=== PATIENT | female | born 1985 | race Caucasian/White ===

== ENCOUNTER 2020-02-01 10:28 | Emergency (ER) | payer SELFPAY ==
--- NOTE | 2020-02-01 11:17 | RAD REPORT ---
EXAM DESCRIPTION: RAD - Hand Right 3 View - 02/01/2020 11:11 am CLINICAL HISTORY: lasceration to right finger;Pain COMPARISON: No comparisons FINDINGS: Soft tissue swelling affects the third finger. No fracture, dislocation or foreign body.
--- NOTE | 2020-02-01 11:57 | ER ---
Nurse's Notes [facility] Name: Yoselin Fish Age: 34 yrs Sex: Female : 1985 Arrival Date: 02/01/2020 Time: 10:32 Bed 7 Private MD: Milad Little V Diagnosis: Laceration to volar aspect of right middle finger at the distal phalanx Presentation: 01/31 10:35 Chief complaint: Patient states: laceration to R third finger sustained by glass 1 hour ss ago. Coronavirus screen: Patient denies fever greater than 100.4F, cough, shortness of breath, or difficulty breathing. Proceed with normal triage process. Ebola Screen: Patient denies exposure to infectious person. Patient denies travel to an Ebola-affected area in the 21 days before illness onset. Initial Sepsis Screen: Does the patient meet any 2 criteria? No. Patient's initial sepsis screen is negative. Does the patient have a suspected source of infection? No. Patient's initial sepsis screen is negative. Risk Assessment: Do you want to hurt yourself or someone else? Patient reports no desire to harm self or others. 10:35 Method Of Arrival: Ambulatory ss 10:35 Acuity: TIESHA 4 ss Historical: - Allergies: 10:36 No Known Allergies; ss - Home Meds: 10:36 None [Active]; ss - PMHx: 10:36 None; ss - PSHx: 10:36 None; ss - Immunization history:: Adult Immunizations up to date. - Social history:: Smoking status: Patient denies any tobacco usage or history of. Screenin:02 Abuse screen: Denies threats or abuse. Denies injuries from another. Nutritional hb screening: No deficits noted. Tuberculosis screening: No symptoms or risk factors identified. Fall Risk None identified. Assessment: 10:55 General: Appears in no apparent distress. Behavior is calm, cooperative. Pain: Pain hb currently is 3 out of 10 on a pain scale. Neuro: Level of Consciousness is awake, alert, obeys commands, Oriented to person, place, time, situation. Cardiovascular: Capillary refill < 3 seconds Patient's skin is warm and dry. Respiratory: Airway is patent Respiratory effort is even, unlabored, Respiratory pattern is regular, symmetrical. GI: No signs and/or symptoms were reported involving the gastrointestinal system. : No signs and/or symptoms were reported regarding the genitourinary system. EENT: No signs and/or symptoms were reported regarding the EENT system. Derm: Skin is pink, warm \T\ dry. Musculoskeletal: No signs and/or symptoms reported regarding the musculoskeletal system. 10:56 Injury Description: Laceration sustained to palmar aspect of distal phalanx of left hb middle finger is jagged, 0.5 to 2.5 cm long, a small amount of bleeding noted at this time. 11:30 Reassessment: Patient appears in no apparent distress at this time. Patient and/or hb family updated on plan of care and expected duration. Pain level reassessed. Patient is alert, oriented x 3, equal unlabored respirations, skin warm/dry/pink. 12:04 Reassessment: Patient appears in no apparent distress at this time. Patient and/or hb family updated on plan of care and expected duration. Pain level reassessed. Patient is alert, oriented x 3, equal unlabored respirations, skin warm/dry/pink. Vital Signs: 10:35 BP 132 / 91; Pulse 89; Resp 14; Temp 98.5(TE); Pulse Ox 96% on R/A; Weight 99.79 kg; ss Height 5 ft. 9 in. (175.26 cm); Pain 6/10; 11:40 BP 123 / 85; Pulse 77; Resp 16; Temp 97.6(TE); Pulse Ox 96% on R/A; mh5 10:35 Body Mass Index 32.49 (99.79 kg, 175.26 cm) ED Course: 10:32 Patient arrived in ED. am2 10:32 Milad Little MD is Private Physician. am2 10:36 Triage completed. ss 10:36 Arm band placed on left wrist. ss 10:36 Pulse ox on. NIBP on. mh5 10:39 Ophelia Kitchen, CATRACHITA is Primary Nurse. hb 10:39 Omar Coleman MD is Attending Physician. kdr 11:02 Patient has correct armband on for positive identification. Bed in low position. Call hb light in reach. 11:13 Hand Right 3 View XRAY In Process Unspecified. EDMS 11:53 Milad Little MD is Referral Physician. kdr 12:05 No provider procedures requiring assistance completed. Patient did not have IV access hb during this emergency room visit. Administered Medications: No medications were administered Outcome: 11:56 Discharge ordered by . anyi 12:05 Discharged to home ambulatory. hb 12:05 Condition: stable 12:05 Discharge instructions given to patient, Instructed on discharge instructions, follow up and referral plans. medication usage, wound care, Demonstrated understanding of instructions, follow-up care, medications, wound care, Prescriptions given X 1. 12:05 Patient left the ED. hb Signatures: Dispatcher [employer] EDMS Omar Coleman MD MD kdr Smirch, Shelby, RN RN Ophelia Kitchen RN RN Brittnee Hui 5 Osorio, Desiree 2
--- NOTE | 2020-02-01 11:57 | EDPHYS ---
Physician Documentation [facility] Name: Yoselin Fish Age: 34 yrs Sex: Female : 1985 Arrival Date: 02/01/2020 Time: 10:32 Bed 7 Private MD: Milad Little V ED Physician Omar Coleman HPI: 01/31 12:30 This 34 yrs old Female presents to ER via Ambulatory with complaints of kdr Finger Injury. 12:30 The patient or guardian reports an abrasion, decreased range of motion, injury, pain, kdr tenderness. The complaints affect the DIP of right middle finger. Context: Glass tray dropped and shattered into small fragments. Onset: The symptoms/episode began/occurred acutely, just prior to arrival. Modifying factors: The symptoms are alleviated by nothing, the symptoms are aggravated by nothing. 15:58 Associated signs and symptoms: The patient has no apparent associated signs or kdr symptoms. Severity of symptoms: At their worst the symptoms were very mild, in the emergency department the symptoms are unchanged. The patient has not experienced similar symptoms in the past. The patient has not recently seen a physician. Historical: - Allergies: 10:36 No Known Allergies; ss - Home Meds: 10:36 None [Active]; ss - PMHx: 10:36 None; ss - PSHx: 10:36 None; ss - Immunization history:: Adult Immunizations up to date. - Social history:: Smoking status: Patient denies any tobacco usage or history of. ROS: 15:58 Skin: Positive for laceration(s), of the palmar aspect of distal phalanx of right kdr middle finger. 15:59 Constitutional: Negative for fever, chills, and weight loss. kdr Exam: 15:58 Constitutional: This is a well developed, well nourished patient who is awake, alert, kdr and in no acute distress. 15:58 Musculoskeletal/extremity: Pulses: are normal with no appreciated deficits, Perfusion: the extremity is pink, warm, Sensation intact. Joints: All joints appear normal with full range of motion. Vital Signs: 10:35 BP 132 / 91; Pulse 89; Resp 14; Temp 98.5(TE); Pulse Ox 96% on R/A; Weight 99.79 kg; ss Height 5 ft. 9 in. (175.26 cm); Pain 6/10; 11:40 BP 123 / 85; Pulse 77; Resp 16; Temp 97.6(TE); Pulse Ox 96% on R/A; mh5 10:35 Body Mass Index 32.49 (99.79 kg, 175.26 cm) MDM: 11:56 Patient medically screened. kdr 15:58 Data reviewed: vital signs, nurses notes. Counseling: I had a detailed discussion with kdr the patient and/or guardian regarding: the historical points, exam findings, and any diagnostic results supporting the discharge/admit diagnosis, radiology results, the need for outpatient follow up. 01/31 10:50 Order name: Hand Right 3 View XRAY; Complete Time: 11:53 ma2 01/31 10:52 Order name: Misc. Order: Clean and dress wound, steri strip, finger splint; Complete ma2 Time: 11:38 Administered Medications: No medications were administered Disposition: 02/01/20 11:56 Discharged to Home. Impression: Laceration to volar aspect of right middle finger at the distal phalanx. - Condition is Stable. - Discharge Instructions: Laceration Care, Adult, [id number]. - Prescriptions for Ibuprofen 600 mg Oral Tablet - take 1 tablet by ORAL route every 6 hours As needed take with food; 30 tablet. - Medication Reconciliation Form, Thank You Letter form. - Follow up: Milad Little MD; When: 2 - 3 days; Reason: If symptoms return, Further diagnostic work-up, Recheck today's complaints, Continuance of care, Re-evaluation by your physician. - Problem is new. - Symptoms have improved. Signatures: Dispatcher [employer] EDMS Omar Coleman MD MD [facility] Amber Hughes RN RN Ophelia Kitchen RN RN Florence Zaman MD MD ma2 Corrections: (The following items were deleted from the chart) 12:05 11:56 02/01/2020 11:56 Discharged to Home. Impression: Laceration to volar aspect of hb right middle finger at the distal phalanx. Condition is Stable. Forms are Medication Reconciliation Form, Thank You Letter, Antibiotic Education, Prescription Opioid Use. Follow up: Milad Little; When: 2 - 3 days; Reason: If symptoms return, Further diagnostic work-up, Recheck today's complaints, Continuance of care, Re-evaluation by your physician. Problem is new. Symptoms have improved. kdr
[2020-02-01 12:21] VITALS: O2SAT 96
[2020-02-01 12:28] VITALS: BP 123/85; TEMP 97.6
== END 2020-02-01 12:05 | disposition home or self-care (01) ==
LOC: ER 10:28
DX: S61.212A Laceration without foreign body of right middle finger without damage to nail, initial encounter (principal); W25.XXXA Contact with sharp glass, initial encounter; Y93.89 Activity, other specified; Y92.9 Unspecified place or not applicable
CPT/HCPCS: 99283

== ENCOUNTER 2025-06-06 06:17 | Inpatient (IN) | payer OTHER ==
--- OUTSIDE RECORDS SUMMARY | 2025-06-06 06:20 | XMS REPORT | Continuity of Care Document ---
Author Name Unknown Address [address] [place], [place] [address] Address [address] [place] [id number] Care Team Providers Care Registry Nurse Name Role Phone Unavailable Unavailable Unavailable
[2025-06-06] MEDS ORDERED: NA CHLORIDE 0.9% 1,000 ML ONE ×2 (06:33→11:05)
[2025-06-06] MEDS ORDERED: MORPHINE 4 MG/ML SYR ONE (06:33)
[2025-06-06] MEDS ORDERED: ONDANSETRON 4 MG/2 ML VIAL ONE (06:33)
[2025-06-06 06:49] LABS: Absolute Lymphocytes (CBC) 1.1 K/uL (0.7-4.9); Hematocrit 37.7 % (36.0-45.0); Hemoglobin 13.2 g/dL (12.0-15.0); MCH 30.4 pg (27.0-35.0); MCHC 35.1 g/dL (32.0-36.0); MCV 86.6 fL (80-100); MPV 7.0 fL (7.6-11.3); Nucleated RBC Absolute Count 0.0 (0-0); Nucleated Red Blood Cells % 0.0 % (0-0); RBC Red Blood Cell Count 4.35 M/uL (3.86-4.86); White Blood Count 13.90 thou/uL (4.3-10.9)
[2025-06-06] MEDS ORDERED: FAMOTIDINE 20 MG/2 ML VIAL IV ONE (07:05)
[2025-06-06 07:09] LABS: ALT/SGPT 19.0 U/L (13-56); AST/SGOT 16.0 U/L (15-37); Albumin 3.3 g/dL (3.4-5.0); Albumin/Globulin Ratio 0.8 (1.1-1.8); Alkaline Phosphatase 85.0 U/L (45-117); Anion Gap 10.6 mEq/L (5.0-15.0); BUN Blood Urea Nitrogen 9.0 mg/dL (7-18); Globulin 3.9 g/dL (2.3-3.5); Glucose Level 156.0 mg/dL (74-106); Lipase 24.0 U/L (13-75); Potassium 3.6 mEq/L (3.5-5.1)
[2025-06-06 07:41] LABS: Sqamous Epithelial <5 /HPF (None Seen); Urine Culture Reflex Order NOT NEEDED; Urine Microscopic Reflex YN ORDER UMIC
--- NOTE | 2025-06-06 08:00 | RAD REPORT ---
EXAM: Abdominal exam Limited ultrasound CLINICAL HISTORY: Abdominal pain COMPARISON: None FINDINGS: A gallstone is not seen. Gallbladder wall not thickened. Biliary tree normal caliber IMPRESSION: No significant abnormalities displayed
--- NOTE | 2025-06-06 08:13 | RAD REPORT ---
EXAMINATION: CT ABDOMEN AND PELVIS WITH CONTRAST CLINICAL INDICATION: Abdominal pain TECHNIQUE: CT abdomen and pelvis was performed, after the administration of 100 cc Isovue-300.. Sagit eunice and coronal reconstructions were obtained. One or more of the following dose reduction techniques were used: Automated exposure control, adjustment of the mA and kV according to patient si ze, and iterative reconstruction. Unless otherwise specified, incidental findings do not require dedicated imaging follow-up. [id number]. Oral contrast was not given which limits evaluation of bowel and appendix. COMPARISON: .None FINDINGS: Liver, spleen, pancreas, adrenals and kidneys appear unremarkable Mild diastases rectus abdominis muscles. Tiny umbilical hernia. Terminal ileum is distended with mildly thickened wall. The stranding within the adjacent fat. Distal appendix is borderline enlarged. 3.1 cm right ovarian cyst likely benign. No follow-up imaging recommended The wall of transverse colon appears mildly thickened. No evidence of diverticulitis. : IMPRESSION: Distention terminal ileum with mild thickening and stranding in the adjacent fat probably indicating inflammation. Borderline dilatation of distal appendix probably not significant. However, this should be correlated clinically for signs of acute appendicitis. All transverse colon appears mildly thickened. This could indicate a mild colitis or simply be second gini to incomplete distention
[2025-06-06 08:36] LABS: White Blood Cell Scan OK (OK)
[2025-06-06 08:37] LABS: Blood Morphology Comment NOT SEEN (NOT SEEN); Platelets, Giant NOTED
[2025-06-06] MEDS ORDERED: KETOROLAC 30 MG/ML INJ ONE (09:01)
[2025-06-06] MEDS ORDERED: NA CHLORIDE 0.9% 100 ML ONE (09:01)
[2025-06-06] MEDS ORDERED: PIPERACIL/TAZO 3.375 GM VIAL IV ONE (09:01)
[2025-06-06] MEDS ORDERED: ONDANSETRON 4 MG/2 ML VIAL IV PRN (09:09)
[2025-06-06] MEDS: PIPER TAZO 3.375 GM in NA CHLORIDE 0.9% 100 ML IV SCH (09:12)
[2025-06-06] MEDS: PANTOPRAZOLE 40 MG INJ IVP SCH (09:12)
--- NOTE | 2025-06-06 09:16 | P.HP ---
Certification for Inpatient Patient admitted to: Observation With expected LOS: <2 Midnights Practitioner: I am a practitioner with admitting privileges, knowledge of patient current condition, hospital course, and medical plan of care. Services: Services provided to patient in accordance with Admission requirements found in Title 42 Section 412.3 of the Code of Federal Regulations Patient History Date of Service: 06/06/25 Reason for admission: Abdominal pain History of Present Illness: Patient is a 39-year-old female with a past medical history of depression. She is currently on oral contraceptive pills as well. She presented to the ER complaining of abdominal pain ongoing for the past 5 days. Patient is reporting a diffuse abdominal pain associated with nausea and diarrhea. She denies vomiting. She denies fever or chills. CT abdomen and pelvis revealed distention of the terminal ileum concerning for terminal ileitis and possibly appendicitis. Surgery was consulted by ER. Recommending medical management for now. Patient presented with WBC of 13,000. Physical Examination - Physical Exam General: Acute distress, Obese HEENT: Atraumatic, Normocephalic Respiratory: Clear to auscultation bilaterally, Normal air movement Cardiovascular: No edema, Normal pulses, Regular rate/rhythm, Normal S1 S2 Gastrointestinal: Soft and benign, Non-distended, Tenderness Neurological: Normal speech - Studies Laboratory Data (last 24 hrs) 06/06/25 06/06/25 06:37 06:37 WBC 13.90 H Hgb 13.2 Hct 37.7 Plt Count 228 Sodium 136 Potassium 3.6 BUN 9 Creatinine 0.72 Glucose 156 H Total Bilirubin 0.8 AST 16 ALT 19 Alkaline Phosphatase 85 Lipase 24 Assessment and Plan - Plan Assessment This is a generally healthy 39-year-old female with no history of amatory bowel disease. She is being admitted after she presents with abdominal pain. CT abdomen pelvis concerning for terminal ileitis versus appendicitis. Patient present with WBC of 13,000. Abdominal pain Leukocytosis Depression Plan: Will admit under observation Continue IV fluid infusion and Zosyn for empiric coverage Antiemetics and IV PPI ordered Pain control Surgery has been consulted. Dr. Mccarthy recommends medical management for now DVT prophylaxis - Advance Directives Does patient have a Living Will: No Does patient have a Durable POA for Healthcare: No
--- NOTE | 2025-06-06 09:31 | ER ---
Nurse's Notes [facility] Name: Yoselin Bernardo Age: 39 yrs Sex: Female : 1985 Arrival Date: 06/06/2025 Time: 06:17 Bed 6 Private MD: Diagnosis: Abdominal pain, Generalized Presentation: 06/06 06:46 Chief complaint: Patient states: severe abdominal pain that started Tuesday with some vc1 nausea and diarrhea. Coronavirus screen: Client denies travel out of the [place] in the last 14 days. At this time, the client does not indicate any symptoms associated with coronavirus-19. Ebola Screen: Patient negative for fever greater than or equal to 101.5 degrees Fahrenheit, and additional compatible Ebola Virus Disease symptoms Patient denies exposure to infectious person. Patient denies travel to an Ebola-affected area in the 21 days before illness onset. No symptoms or risks identified at this time. Initial Sepsis Screen: Does the patient meet any 2 criteria? No. Patient's initial sepsis screen is negative. Does the patient have a suspected source of infection? No. Patient's initial sepsis screen is negative. Risk Assessment: Do you want to hurt yourself or someone else? Patient reports no desire to harm self or others. Onset of symptoms was June 02, 2025. 06:46 Method Of Arrival: Ambulatory vc1 06:46 Acuity: TIESHA 3 vc1 Triage Assessment: 06:51 General: Appears in no apparent distress. uncomfortable, well groomed, well developed, vc1 well nourished, Behavior is calm, cooperative, appropriate for age. Pain: Complains of pain in right lower quadrant and left lower quadrant Pain radiates to right upper quadrant and left upper quadrant Pain currently is 9 out of 10 on a pain scale. Quality of pain is described as sharp, Pain began 2-3 days ago. Is continuous, Aggravated by increased activity, repositioning, Also complains of nausea. EENT: No deficits noted. No signs and/or symptoms were reported regarding the EENT system. Neuro: Level of Consciousness is awake, alert, obeys commands, Oriented to person, place, time, situation, Appropriate for age. Cardiovascular: Capillary refill < 3 seconds Patient's skin is warm and dry. Respiratory: Airway is patent Respiratory effort is even, unlabored, Respiratory pattern is regular, symmetrical, Breath sounds are clear bilaterally. GI: Abdomen is round non-distended, Abd is soft Abdomen is tender to palpation X 4 quads. Reports lower abdominal pain, diarrhea, nausea, Patient currently denies vomiting. : No deficits noted. No signs and/or symptoms were reported regarding the genitourinary system. Derm: Skin is intact, is healthy with good turgor, Skin is dry, Skin is normal, Skin temperature is warm. Musculoskeletal: Circulation, motion, and sensation intact. Range of motion: intact in all extremities. 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 - Infectious Disease History:: Denies. - Family history:: not pertinent. - Social history:: Smoking status: Patient denies any tobacco usage or history of. Screenin:46 [facility] ED Fall Risk Assessment (Adult) History of falling in the last 3 months, tb4 including since admission No falls in past 3 months (0 pts) Confusion or Disorientation No (0 pts) Intoxicated or Sedated No (0 pts) Impaired Gait No (0 pts) Mobility Assist Device Used No (0 pt) Altered Elimination No (0 pt) Score/Fall Risk Level 0 - 2 = Low Risk Oriented to surroundings, Maintained a safe environment. Abuse screen: Denies threats or abuse. Nutritional screening: No deficits noted. Tuberculosis screening: No symptoms or risk factors identified. Assessment: 06:50 Reassessment: See triage note. General: Appears uncomfortable, Behavior is cooperative. tb4 Pain: Complains of pain in abdomen Pain does not radiate. Pain currently is 8 out of 10 on a pain scale. Quality of pain is described as sharp, Pain began suddenly. Neuro: Level of Consciousness is awake, alert, obeys commands, Oriented to person, place, time, situation, Technical Communication Teacher are equal bilaterally Moves all extremities. Full function Gait is steady, Speech is normal, Facial symmetry appears normal. Respiratory: Airway is patent Trachea midline Respiratory effort is even, unlabored, Respiratory pattern is regular, symmetrical. : No deficits noted. No signs and/or symptoms were reported regarding the genitourinary system. 07:25 General: Appears in no apparent distress. comfortable, well groomed, well developed, kc6 Behavior is calm, cooperative, appropriate for age. Pain: Complains of pain in abdomen diffusely. Neuro: Level of Consciousness is awake, alert, obeys commands, Oriented to person, place, time, situation, Appropriate for age. Cardiovascular: Capillary refill < 3 seconds. Respiratory: Airway is patent Trachea midline Respiratory effort is even, unlabored, Respiratory pattern is regular, symmetrical. GI: Abdomen is round non-distended, Bowel sounds present X 4 quads. Abd is soft X 4 quads Abdomen is tender to palpation X 4 quads. Reports lower abdominal pain, upper abdominal pain, Patient currently denies diarrhea, nausea, vomiting. : No signs and/or symptoms were reported regarding the genitourinary system. Urine is clear. EENT: No signs and/or symptoms were reported regarding the EENT system. Derm: No signs and/or symptoms reported regarding the dermatologic system. Skin is intact, is healthy with good turgor, Skin is pink, warm \T\ dry. Musculoskeletal: No signs and/or symptoms reported regarding the musculoskeletal system. Circulation, motion, and sensation intact. Range of motion: intact in all extremities. 08:25 Reassessment: Patient appears in no apparent distress at this time. No changes from kc6 previously documented assessment. Patient and/or family updated on plan of care and expected duration. Pain level reassessed. Patient is alert, oriented x 3, equal unlabored respirations, skin warm/dry/pink. 09:25 Reassessment: Patient appears in no apparent distress at this time. No changes from kc6 previously documented assessment. Patient and/or family updated on plan of care and expected duration. Pain level reassessed. Patient is alert, oriented x 3, equal unlabored respirations, skin warm/dry/pink. Vital Signs: 06:46 BP 120 / 98; Pulse 98; Resp 20; Pulse Ox 99% on R/A; Weight 95.25 kg; Height 5 ft. 9 tb4 in. ; Pain 7/10; 06:46 BP 153 / 95; Pulse 92; Resp 16; Temp 98.1; Pulse Ox 97% ; Weight 102.51 kg; Height 5 vc1 ft. 9 in. ; Pain 9/10; 07:25 BP 142 / 90; Pulse 81; Resp 17 S; Pulse Ox 97% on R/A; kc6 09:46 BP 128 / 85; Pulse 81; Resp 16 S; Pulse Ox 98% on R/A; kc6 10:27 BP 127 / 86; Pulse 85; Resp 16 S; Pulse Ox 97% on R/A; kc6 06:46 Body Mass Index 31.01 (95.25 kg, 175.26 cm) tb4 06:46 Pain Scale: Adult tb4 06:46 Pain Scale: Adult vc1 ED Course: 06:20 Patient arrived in ED. jj6 06:20 Carlos Vee MD is Attending Physician. joe 06:45 Inserted saline lock: 20 gauge in right antecubital area, using aseptic technique. vc1 Blood collected. Flushed with 10 mL NS. 06:46 Initial lab(s) drawn, by ED staff, sent to lab. tb4 06:46 Patient has correct armband on for positive identification. Bed in low position. Call tb4 light in reach. Side rails up X 1. Client placed on continuous cardiac and pulse oximetry monitoring. NIBP monitoring applied. Door closed. Lights dimmed. 06:48 Triage completed. vc1 06:50 No provider procedures requiring assistance completed. tb4 06:51 Arm band placed on right wrist. vc1 06:51 Provided Education on: Plan of care. vc1 07:02 Report received from CATRACHITA Kruse. kc6 07:14 Attending Physician role handed off by Carlos Vee MD [email or web address] 07:14 Denis Le MD is Attending Physician. jr11 07:24 Dana Gibbs RN is Primary Nurse. kc6 07:24 Urine collected: clean catch specimen, clear. Patient maintains SpO2 saturation greater kc6 than 95% on room air. 07:52 CT Abd/Pelvis - IV Contrast Only In Process Unspecified. EDMS 07:58 Abdomen Limited US In Process Unspecified. EDMS 09:30 Prince Mejia MD is Hospitalizing Provider. jr11 10:27 Patient admitted, IV remains in place. kc6 Administered Medications: 06:45 Drug: Ondansetron IVP 4 mg IVP once; over 2 minutes Route: IVP; Site: right antecubital;tb4 07:24 Follow up: Response: No adverse reaction kc6 06:45 Drug: NS 0.9% IV 1000 ml IV at 1 bolus Per protocol; to be given as a bolus over 60 tb4 minutes Route: IV; Rate: 1 bolus; Site: right antecubital; 09:45 Follow up: Response: No adverse reaction; IV Status: Completed infusion; IV Intake: kc6 1000ml 06:46 Drug: morphine IVP or IV 4 mg IVP once over 4 mins Route: IVP; Infused Over: 4 mins; tb4 Site: right antecubital; 07:24 Follow up: Response: No adverse reaction; Pain is decreased; RASS: Alert and Calm (0) kc6 07:24 Drug: Famotidine IVP 20 mg IVP once; dilute with 10 mL 0.9% NaCl; give over 2 minutes kc6 Route: IVP; Site: right antecubital; 09:45 Follow up: Response: No adverse reaction kc6 09:30 Drug: Ketorolac IVP 15 mg IVP once Route: IVP; Site: right antecubital; kc6 10:26 Follow up: Response: No adverse reaction kc6 09:45 Drug: Piperacillin-Tazobactam IVPB 3.375 grams IVPB once over 60 mins; (mix in NS 100 kc6 mL) Route: IVPB; Infused Over: 60 mins; Site: right antecubital; 10:26 Follow up: Response: No adverse reaction; IV Status: Completed infusion; IV Intake: kc6 100ml Medication: 06:46 VIS not applicable for this client. tb4 Intake: 09:45 IV: 1000ml; Total: 1000ml. kc6 10:26 IV: 100ml; Total: 1100ml. kc6 Outcome: 09:30 Decision to Hospitalize by Provider. [email or web address] 10:27 Admitted to ER Hold. Please see [facility] for further documentation. kc6 10:27 Condition: stable 10:27 Instructed on the need for admit, 15:12 Patient left the ED. kc6 Signatures: Dispatcher [employer] EDCarlos Menon MD MD cha Jeffries, Jennifer jj6 Sandy Reddy RN RN vc1 Denis Le MD MD jr11 Dana Gibbs RN RN kc6 Brown, Aixa, RN RN tb4
--- NOTE | 2025-06-06 09:31 | EDPHYS ---
Physician Documentation [facility] Name: Yoselin Bernardo Age: 39 yrs Sex: Female : 1985 Arrival Date: 06/06/2025 Time: 06:17 Bed 6 Private MD: ED Physician Denis Le HPI: 06/06 06:39 This 39 yrs old Female presents to ER via Unassigned with complaints of joe Abdominal Pain. 06:39 The patient presents with abdominal pain in the lower abdomen. Onset: The joe symptoms/episode began/occurred 4 day(s) ago. The symptoms do not radiate. Associated signs and symptoms: none. Modifying factors: The symptoms are alleviated by nothing, the symptoms are aggravated by movement, pressure. Severity of pain: At its worst the pain was moderate in the emergency department the pain is unchanged. The patient has not experienced similar symptoms in the past. 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 - Infectious Disease History:: Denies. - Family history:: not pertinent. - Social history:: Smoking status: Patient denies any tobacco usage or history of. ROS: 06:39 Constitutional: Negative for fever, chills, and weight loss, Eyes: Negative for injury, joe pain, redness, and discharge, ENT: Negative for injury, pain, and discharge, Neck: Negative for injury, pain, and swelling, Cardiovascular: Negative for chest pain, palpitations, and edema, Respiratory: Negative for shortness of breath, cough, wheezing, and pleuritic chest pain, Back: Negative for injury and pain, : Negative for injury, bleeding, discharge, and swelling, MS/Extremity: Negative for injury and deformity, Skin: Negative for injury, rash, and discoloration, Neuro: Negative for headache, weakness, numbness, tingling, and seizure, Psych: Negative for depression, anxiety, suicide ideation, homicidal ideation, and hallucinations, Allergy/Immunology: Negative for hives, rash, and allergies, Endocrine: Negative for neck swelling, polydipsia, polyuria, polyphagia, and marked weight changes, Hematologic/Lymphatic: Negative for swollen nodes, abnormal bleeding, and unusual bruising, 06:39 Abdomen/GI: Positive for abdominal pain, of the umbilical area, right lower quadrant and left lower quadrant, Exam: 06:39 Constitutional: This is a well developed, well nourished patient who is awake, alert, joe and in no acute distress. Head/Face: Normocephalic, atraumatic. Eyes: Pupils equal round and reactive to light, extra-ocular motions intact. Lids and lashes normal. Conjunctiva and sclera are non-icteric and not injected. Cornea within normal limits. Periorbital areas with no swelling, redness, or edema. ENT: Nares patent. No nasal discharge, no septal abnormalities noted. Tympanic membranes are normal and external auditory canals are clear. Oropharynx with no redness, swelling, or masses, exudates, or evidence of obstruction, uvula midline. Mucous membranes moist. Neck: Trachea midline, no thyromegaly or masses palpated, and no cervical lymphadenopathy. Supple, full range of motion without nuchal rigidity, or vertebral point tenderness. No Meningismus. Chest/axilla: Normal chest wall appearance and motion. Nontender with no deformity. No lesions are appreciated. Cardiovascular: Regular rate and rhythm with a normal S1 and S2. No gallops, murmurs, or rubs. Normal PMI, no JVD. No pulse deficits. Respiratory: Lungs have equal breath sounds bilaterally, clear to auscultation and percussion. No rales, rhonchi or wheezes noted. No increased work of breathing, no retractions or nasal flaring. Back: No spinal tenderness. No costovertebral tenderness. Full range of motion. Skin: Warm, dry with normal turgor. Normal color with no rashes, no lesions, and no evidence of cellulitis. MS/ Extremity: Pulses equal, no cyanosis. Neurovascular intact. Full, normal range of motion., bilateral aka Neuro: Awake and alert, GCS 15, oriented to person, place, time, and situation. Cranial nerves II-XII grossly intact. Motor strength 5/5 in all extremities. Sensory grossly intact. Cerebellar exam normal. Normal gait. Psych: Awake, alert, with orientation to person, place and time. Behavior, mood, and affect are within normal limits. 06:39 Abdomen/GI: Inspection: abdomen appears normal, Bowel sounds: normal, Palpation: mild abdominal tenderness, moderate abdominal tenderness, in the suprapubic area, right upper quadrant, left upper quadrant, right lower quadrant and left lower quadrant, Liver: no appreciated palpable abnormalities, Hernia: not appreciated, Vital Signs: 06:46 BP 120 / 98; Pulse 98; Resp 20; Pulse Ox 99% on R/A; Weight 95.25 kg; Height 5 ft. 9 tb4 in. ; Pain 7/10; 06:46 BP 153 / 95; Pulse 92; Resp 16; Temp 98.1; Pulse Ox 97% ; Weight 102.51 kg; Height 5 vc1 ft. 9 in. ; Pain 9/10; 07:25 BP 142 / 90; Pulse 81; Resp 17 S; Pulse Ox 97% on R/A; kc6 09:46 BP 128 / 85; Pulse 81; Resp 16 S; Pulse Ox 98% on R/A; kc6 10:27 BP 127 / 86; Pulse 85; Resp 16 S; Pulse Ox 97% on R/A; kc6 06:46 Body Mass Index 31.01 (95.25 kg, 175.26 cm) tb4 06:46 Pain Scale: Adult tb4 06:46 Pain Scale: Adult vc1 MDM: 06:21 Medical Screening Exam initiated joe 06:46 Differential diagnosis: cholecystitis, Cholelithiasis, diverticulitis, gastritis, joe non-specific abd pain, pancreatitis, Peptic Ulcer Disease, Ureterolithiasis, urinary tract infection. Data reviewed: vital signs, nurses notes, lab test result(s), radiologic studies, CT scan, ultrasound. Consideration of Admission/Observation Escalation of care including admission/observation considered. I considered the following discharge prescriptions or medication management in the emergency department Medications were administered in the Emergency Department. See MAR. Independent interpretation of the following test(s) in the Emergency Department CT Scan: My interpretation is CT A/P . Radiology Department Ultrasound: My interpretation is GB USG. Test considered but Not performed: MRI: NO MRCP. Historians other than the Patient: PT WELL INFORMED. Care significantly affected by the following chronic conditions: Obesity, RAN A 5Tuesday. Counseling: I had a detailed discussion with the patient and/or guardian regarding the historical points, exam findings, and any diagnostic results supporting the discharge/admit diagnosis, lab results, radiology results. 09:29 ED course: CT to my read no perforation, Dr Mccarthy will consult, Dr Mejia will admit . jr11 06/06 06:22 Order name: CBC with Diff; Complete Time: 08:[address] [facility] 06/06 06:22 Order name: CMP; Complete Time: 08:[address] [facility] 06/06 06:22 Order name: Lipase; Complete Time: 08:[address] [facility] 06/06 06:22 Order name: UA Rfx Mihai Cult if indicated; Complete Time: 08:[address] [facility] 06/06 06:40 Order name: Test, Serum; Complete Time: 07:07 al5 06/06 06:56 Order name: CBC Smear Scan; Complete Time: 08:38 [facility] 06/06 09:13 Order name: Lactate w/ 2H reflex if indic.; Complete Time: 11:37 [facility] 06/06 09:13 Order name: Magnesium; Complete Time: 11:37 [facility] 06/06 09:13 Order name: Phosphorus; Complete Time: 11:37 [facility] 06/06 09:13 Order name: Basic Metabolic Panel [facility] 06/06 09:13 Order name: Basic Metabolic Panel [facility] 06/06 09:13 Order name: CBC with Automated Diff [facility] 06/06 09:13 Order name: CBC with Automated Diff [facility] 06/06 06:22 Order name: Abdomen Limited US; Complete Time: 08:[address] [facility] 06/06 06:22 Order name: CT Abd/Pelvis - IV Contrast Only; Complete Time: 08:[address] [facility] 06/06 06:22 Order name: IV Saline Lock; Complete Time: 06:[address] [facility] 06/06 06:22 Order name: Labs collected and sent; Complete Time: 06:[address] [facility] Administered Medications: 06:45 Drug: Ondansetron IVP 4 mg IVP once; over 2 minutes Route: IVP; Site: right antecubital;tb4 07:24 Follow up: Response: No adverse reaction kc6 06:45 Drug: NS 0.9% IV 1000 ml IV at 1 bolus Per protocol; to be given as a bolus over 60 tb4 minutes Route: IV; Rate: 1 bolus; Site: right antecubital; 09:45 Follow up: Response: No adverse reaction; IV Status: Completed infusion; IV Intake: kc6 1000ml 06:46 Drug: morphine IVP or IV 4 mg IVP once over 4 mins Route: IVP; Infused Over: 4 mins; tb4 Site: right antecubital; 07:24 Follow up: Response: No adverse reaction; Pain is decreased; RASS: Alert and Calm (0) kc6 07:24 Drug: Famotidine IVP 20 mg IVP once; dilute with 10 mL 0.9% NaCl; give over 2 minutes kc6 Route: IVP; Site: right antecubital; 09:45 Follow up: Response: No adverse reaction kc6 09:30 Drug: Ketorolac IVP 15 mg IVP once Route: IVP; Site: right antecubital; kc6 10:26 Follow up: Response: No adverse reaction 6 09:45 Drug: Piperacillin-Tazobactam IVPB 3.375 grams IVPB once over 60 mins; (mix in NS 100 kc6 mL) Route: IVPB; Infused Over: 60 mins; Site: right antecubital; 10:26 Follow up: Response: No adverse reaction; IV Status: Completed infusion; IV Intake: kc6 100ml Disposition Summary: 06/06/25 09:30 Hospitalization Ordered Notes: Hospitalization Status: Observation jr Provider: Prince jordi Mejia Condition: Stable jr Problem: new jr11 Symptoms: are unchanged jr Bed/Room Type: Standard [facility] Location: Telemetry/MedSurg (Inpatient)(06/06/25 14:09) Room Assignment: 425(06/06/25 14:45) Diagnosis - Abdominal pain, Generalized jr Forms: - Medication Reconciliation Form jr11 - SBAR form jr11 - Leadership Thank You Letter [facility] Signatures: Dispatcher [employer] EDMS Carlos Vee MD MD cha Williams, Irene RN RN iw Sandy Reddy RN RN Denis Kang MD MD jr11 Dana Gibbs RN RN kc6 Emerald Adams RN RN kb3 Aixa Ybarra RN RN tb4 Corrections: (The following items were deleted from the chart) 06:22 06:22 Abdomen Pelvis W Con+CT.RAD.BRZ ordered. EDMS EDMS 06:40 06:40 TEST, SERUM+SC.LAB.BRZ ordered. EDMS EDMS 07:31 06:22 Test, Urine+UC.LAB.BRZ ordered. EDMS EDMS : 09:30 Telemetry/MedSurg (observation) jr11 kb3 10: 09:30 jr11 kb3 14:09 10:19 [facility] ER HOLD kb3 iw 14: 10: ERHOLD- kb3 iw 14:45 14:[address] [place] [address]
[2025-06-06] MEDS: NA CHLORIDE 0.9% 1,000 ML IV SCH (10:00)
[2025-06-06 10:09] LABS: Magnesium 2.0 mg/dL (1.6-2.4)
--- NOTE | 2025-06-06 10:33 | CON ---
Date of Consultation: 06/06/2025 Reason For Consultation: Abdominal pain. History Of Present Illness: The patient is a 39-year-old female who presents to the emergency room w ith a 4-day history of lower abdominal pain. The patient has nausea, but no vomiting. She did have some diarrhea, but no constipation. No blood in her stool. No dysuria, hematuria. The patient has not had this type of symptoms in the past. The patient did complete a 5K run last Tuesday. The pat ient denies any sore throat, runny nose, cough, headaches, dizziness. No chest pain. No fever or ch ills. Review of Systems: Otherwise unremarkable. Past Medical History: Significant for depression. Past Surgical History: and tubal ligation. Allergies: NO ALLERGIES. Social History: The patient does not smoke and drinks occasionally. Family History: Noncontributory. Physical Examination: Vital Signs: Stable. She is afebrile. General: She is awake, alert, and oriented x3. Head and Neck: No neck masses. No JVD. Throat clear. Neck is supple. Chest: Clear. Heart: S1, S2. Abdomen: Soft, nondistended. Positive bowel sounds. Positive suprapubic and right lower quadrant t enderness with minimal rebound. No rigidity or guarding. Extremities: Adequately perfused. Nontender. Neuro: Nonfocal. Imaging: A CT of the abdomen and pelvis reviewed. This shows distention of the terminal ileum with mild thickening and stranding in the adjacent fat, probably indicating inflammation and borderline di latation of the distal appendix, probably not significant; however, this should be correlated clinica lly for signs of acute appendicitis. All transverse colon appears mildly thickened. This could anyi alaina mild colitis or simply be secondary to incomplete distention. The patient also had an ultrasoun d done, which shows the gallbladder is within normal limits. Laboratory Data: White count is 13.9 with a left shift. Chemistry reviewed. Assessment: A 39-year-old female with likely terminal ileitis could have some colitis as well. I be lieve the appendix dilatation is not significant at this time. We will treat the patient with antibi otics, serial abdominal exam. Should the patient worsen, then the patient may need a diagnostic lapa roscopy, but at this time, I think the patient will probably need a colonoscopy as an outpatient. On ce they control her symptoms and her infection, this appears to be possibly Crohn disease or some oth er inflammatory bowel disease rather than acute appendicitis. I will discuss the case in detail with the hospitalist team once they see the patient. JOANN/KRISTI Voice ID: [id number] Report ID: [id number]
[2025-06-06 11:03] VITALS: BMI 33.0
[2025-06-06] MEDS ORDERED: PANTOPRAZOLE 40 MG INJ ONE (11:05)
[2025-06-06] MEDS: SODIUM CHLORIDE 0.9% 10ML INJ IV PRN (11:14)
[2025-06-06] MEDS ORDERED: HYDROMORPHONE HCL 1 MG/ML INJ ONE (11:56)
[2025-06-06] MEDS: HYDROMORPHONE HCL 1 MG/ML INJ IV PRN (12:03)
[2025-06-06] MEDS: ACETAMINOPHEN 500 MG TAB PO PRN (20:14)
[2025-06-07 07:17] LABS: Absolute Lymphocytes (CBC) 1.1 K/uL (0.7-4.9); Hematocrit 31.3 % (36.0-45.0); Hemoglobin 11.1 g/dL (12.0-15.0); MCH 31.1 pg (27.0-35.0); MCHC 35.5 g/dL (32.0-36.0); MCV 87.6 fL (80-100); MPV 7.2 fL (7.6-11.3); Nucleated RBC Absolute Count 0.0 (0-0); Nucleated Red Blood Cells % 0.0 % (0-0); RBC Red Blood Cell Count 3.57 M/uL (3.86-4.86); White Blood Count 10.60 thou/uL (4.3-10.9)
[2025-06-07] MEDS: ENOXAPARIN 40 MG/0.4 ML SQ SCH (07:29)
[2025-06-07 07:43] LABS: Anion Gap 8.4 mEq/L (5.0-15.0); BUN Blood Urea Nitrogen 7.0 mg/dL (7-18); Glucose Level 101.0 mg/dL (74-106); Potassium 3.4 mEq/L (3.5-5.1)
[2025-06-07] MEDS: KCL 20 MEQ/100 mL IVPB 20 MEQ/100 ML BAG IV SCH (09:08)
--- NOTE | 2025-06-07 12:13 | PN ---
Date of Progress Note: 06/07/2025 Subjective: The patient is awake, alert. Still has some pain in the lower abdomen and right lower q uadrant. Her vital signs are stable. She is afebrile. Her white count is 10.66. There is a slight left shift still, but it has improved. Electrolytes reviewed. Potassium is slightly low and being replaced. Her abdomen is soft, nondistended. Positive bowel sounds. Positive suprapubic and right lower quadrant tenderness with minimal rebound. No rigidity or guarding. Assessment: A 39-year-old female with likely ileitis and possible colitis with a dilated appendix, w hich I do not think is her primary problem. Recommendation: Continue IV antibiotics. Start her on clear liquids, slowly advance diet as tolerat ed, and once she is medically improved, then we will proceed with discharge and she will need [facility] with the GI Service for an outpatient colonoscopy to rule out inflammatory bowel dise ase. JOANN/ANTOINEL Voice ID: [id number] Report ID: [id number]
--- NOTE | 2025-06-07 13:36 | P.PN ---
Subjective Date of Service: 06/07/25 Chief Complaint: Abdominal pain Subjective: Improving, Other (Follow-up note for terminal ileitis. Patient is doing slightly better. Diet challenged today.) Physical Examination - Vital Signs Temperature: 97.7 F Blood Pressure: 123/65 Pulse: 85 Respirations: 18 Pulse Ox (%): 98 - Physical Exam General: Alert, In no apparent distress, Cooperative HEENT: Atraumatic, Normocephalic Respiratory: Clear to auscultation bilaterally, Normal air movement Cardiovascular: No edema, Normal pulses, Regular rate/rhythm, Normal S1 S2 Gastrointestinal: Soft and benign, Non-distended Neurological: Normal speech Assessment And Plan - Plan Assessment This is a generally healthy 39-year-old female with no history of amatory bowel disease. She is being admitted after she presents with abdominal pain. CT abdomen pelvis concerning for terminal ileitis versus appendicitis. Patient pre sent with WBC of 13,000. Abdominal pain Terminal ileitis/appendicitis Leukocytosis Depression Plan: Diet challenged today. Will advance as tolerated Continue IV fluid infusion and Zosyn for empiric coverage She will require 2 more days of antibiotics Outpatient follow-up with GI for colonoscopy to evaluate inflammatory bowel disease Continue antiemetics and IV PPI ordered Continue pain control Case discussed with Dr. Mccarthy DVT prophylaxis
[2025-06-08 07:54] LABS: Anion Gap 13.4 mEq/L (5.0-15.0); BUN Blood Urea Nitrogen 3.0 mg/dL (7-18); Glucose Level 101.0 mg/dL (74-106); Potassium 3.4 mEq/L (3.5-5.1)
[2025-06-08] MEDS: KCL 20 MEQ/100 mL IVPB 20 MEQ/100 ML BAG IV SCH (09:55)
[2025-06-08 10:43] LABS: STOOL CONSISTENCY Liquid/Semi-Solid
[2025-06-08 10:44] LABS: CDIFF INTERNAL NEG CONTROL White Background (WHITE BKGD)
[2025-06-08 10:45] LABS: C.diff Antigen/Toxin Ag neg : Tox neg (NEG : NEG)
--- NOTE | 2025-06-08 11:22 | P.PN ---
Subjective Date of Service: 06/08/25 Chief Complaint: Abdominal pain Subjective: Other (Patient had about 6 episodes of watery diarrhea over the past 24 hours. Currently checking for C. difficile. Her abdominal pain is better. She is afebrile) Physical Examination - Vital Signs Temperature: 98.4 F Blood Pressure: 115/68 Pulse: 85 Respirations: 16 Pulse Ox (%): 93 - Physical Exam General: Alert, In no apparent distress, Cooperative HEENT: Atraumatic, Normocephalic Respiratory: Clear to auscultation bilaterally, Normal air movement Cardiovascular: No edema, Normal pulses, Regular rate/rhythm, Normal S1 S2 Gastrointestinal: Soft and benign, Non-distended Neurological: Normal speech Assessment And Plan - Plan Assessment This is a generally healthy 39-year-old female with no history of amatory bowel disease. She is being admitted after she presents with abdominal pain. CT abdomen pelvis concerning for terminal ileitis versus appendicitis. Patient present with WBC of 13,000. Abdominal pain Terminal ileitis/appendicitis Diarrhea Hypokalemia Leukocytosisresolved Depression Plan: Full liquid diet today and probiotics Continue Zosyn Follow C. difficile assay Replace potassium Outpatient follow-up with GI for colonoscopy to evaluate inflammatory bowel disease Continue antiemetics and IV PPI ordered Continue pain control Case discussed with Dr. Mccarthy DVT prophylaxis
--- NOTE | 2025-06-08 11:49 | PN ---
Subjective: The patient is complaining about diarrhea. Her abdominal pain is better. She had 4 epi sodes through the night and 2 yesterday. Stool was obtained for C difficile evaluation. Objective: Vital Signs: Stable. She is afebrile. Abdomen: Soft, nondistended. Positive bowel sounds. Much less tender. There is no rebound, rigidi ty, or guarding. Laboratory Data: CBC is still pending. Chemistry reviewed, essentially unremarkable. Assessment: Ileitis and colitis with diarrhea now. I doubt the patient has acute appendicitis as cl inically she is improving. Recommendations: Continue antibiotics. Check stool for C difficile. Advance diet as tolerated. Wo uld recommend probiotics. Plan of care discussed with the hospitalist team. Possible discharge in 2 4 to 48 hours. JOANN/KRISTI Voice ID: [id number] Report ID: [id number]
[2025-06-08 14:29] LABS: Magnesium 2.1 mg/dL (1.6-2.4)
[2025-06-08 14:36] LABS: Absolute Lymphocytes (CBC) 0.9 K/uL (0.7-4.9); Hematocrit 31.3 % (36.0-45.0); Hemoglobin 10.7 g/dL (12.0-15.0); MCH 30.3 pg (27.0-35.0); MCHC 34.1 g/dL (32.0-36.0); MCV 88.7 fL (80-100); MPV 7.7 fL (7.6-11.3); Nucleated RBC Absolute Count 0.0 (0-0); Nucleated Red Blood Cells % 0.0 % (0-0); RBC Red Blood Cell Count 3.53 M/uL (3.86-4.86); White Blood Count 10.80 thou/uL (4.3-10.9)
[2025-06-08] MEDS: POTASS/SODIUM PHOSPHATE 1 PKT POWD.PACK PO SCH (15:26)
[2025-06-08] MEDS: LOPERAMIDE HCL 2 MG CAPSULE PO ONE (16:23)
[2025-06-08] MEDS: LOPERAMIDE HCL 2 MG CAPSULE PO STA (20:29)
[2025-06-09 00:17] VITALS: O2SAT 98
[2025-06-09 05:25] LABS: Anion Gap 9.5 mEq/L (5.0-15.0); Glucose Level 118 mg/dL (74-106); Magnesium 1.9 mg/dL (1.6-2.4); Potassium 3.5 mEq/L (3.5-5.1)
[2025-06-09 05:43] LABS: BUN Blood Urea Nitrogen < 3 mg/dL (7-18)
[2025-06-09] MEDS: POTASSIUM PHOS IN 0.9 % NACL 15 MMOL/250 ML BAG IV ONE ×2 (06:02→09:00)
--- NOTE | 2025-06-09 10:56 | P.DS ---
Admission Date: 06/07/25 Discharge Date: 06/09/25 Disposition: ROUTINE DISCHARGE Discharge Condition: GOOD Reason for Admission: Abdominal pain Brief History of Present Illness: Patient is a 39-year-old female with a past medical history of depression. She is currently on oral contraceptive pills as well. She presented to the ER complaining of abdominal pain ongoing for the past 5 days. Patient is reporting a diffuse abdominal pain associated with nausea and diarrhea. She denies vomiting. She denies fever or chills. CT abdomen and pelvis revealed distention of the terminal ileum concerning for terminal ileitis and possibly appendicitis. Surgery was consulted by ER. Recommending medical management for now. Patient presented with WBC of 13,000. Hospital Course: This is a generally healthy 39-year-old female with no history of amatory bowel disease. She is being admitted after she presents with abdominal pain. CT abdomen pelvis concerning for terminal ileitis versus appendicitis. Patient present with WBC of 13,000. She has responded to antibiotics. She had a brief episodes of watery diarrhea, which resolved. C. difficile was negative. Her diagnosis of appendicitis was not very convincing. Patient was mostly treated with antibiotics. She will need to follow-up with surgery for GI referral for possible colonoscopy and evaluation of inflammatory bowel disease. Vital Signs/Physical Exam: Temp Pulse Resp BP Pulse Ox 99.0 F 77 17 129/77 93 06/09/25 08:00 06/09/25 08:00 06/09/25 08:00 06/09/25 08:00 06/09/25 08:00 General: Alert, In no apparent distress, Cooperative HEENT: Atraumatic, Normocephalic Respiratory: Clear to auscultation bilaterally, Normal air movement Cardiovascular: No edema, Normal pulses, Regular rate/rhythm, Normal S1 S2 Gastrointestinal: Soft and benign, Non-distended Laboratory Data at Discharge: WBC 10.80 thou/uL (4.3-10.9) 06/08/25 07:04 Hgb 10.7 g/dL (12.0-15.0) L 06/08/25 07:04 Hct 31.3 % (36.0-45.0) L 06/08/25 07:04 Plt Count 204 thou/uL (152-406) 06/08/25 07:04 Sodium 140 mEq/L (136-145) D 06/09/25 04:33 Potassium 3.5 mEq/L (3.5-5.1) 06/09/25 04:33 BUN < 3 mg/dL (7-18) L 06/09/25 04:33 Creatinine 0.53 mg/dL (0.55-1.02) L 06/09/25 04:33 Glucose 118 mg/dL (74-106) H 06/09/25 04:33 Phosphorus 2.3 mg/dL (2.5-4.9) L 06/09/25 04:33 Magnesium 1.9 mg/dL (1.6-2.4) 06/09/25 04:33 Total Bilirubin 0.8 mg/dL (0.2-1.0) 06/06/25 06:37 AST 16 U/L (15-37) 06/06/25 06:37 ALT 19 U/L (13-56) 06/06/25 06:37 Alkaline Phosphatase 85 U/L (45-117) 06/06/25 06:37 Lipase 24 U/L (13-75) 06/06/25 06:37 Home Medications: PARoxetine HCL [Paxil*] 10 mg PO BEDTIME 06/07/25 Ciprofloxacin HCl [Cipro 500 MG Tablet] 500 mg PO BID #28 tab 06/09/25 metroNIDAZOLE [Flagyl] 500 mg PO Q8H #30 tab 06/09/25 traMADol HCL [Ultram*] 50 mg PO Q8H PRN #15 tab 06/09/25 New Medications: Ciprofloxacin HCl [Cipro 500 MG Tablet] 500 mg PO BID #28 tab metroNIDAZOLE [Flagyl] 500 mg PO Q8H #30 tab traMADol HCL [Ultram*] 50 mg PO Q8H PRN #15 tab PRN Reason: Pain Followup: NONE,NONE [Primary Care Provider] - Dejan Mccarthy MD [ACTIVE - CAN ADMIT] - 1 Week (Please follow-up surgery for GI referral and possibly colonoscopy in 6 to 8 weeks.)
--- NOTE | 2025-06-09 11:55 | PN ---
Date of Progress Note: 06/09/2025 Subjective: The patient is awake, alert, tolerating diet. No pain. Feels much better. Objective: Vital Signs: Stable. Temperature is 99.0. Abdomen: Soft, nondistended, nontender. Positive bowel sounds. Laboratory Data: White count is 10.8, that was yesterday. Assessment: Ileitis/colitis, rule out inflammatory bowel disease. Recommendations: The patient cleared for discharge on oral antibiotics. The patient is to follow up with GI doctor. She can follow up with me and I can later a referral to a GI doctor for colonoscopy and terminal ileum evaluation as well. Plan of care discussed with the hospitalist team. JOANN/KRISTI Voice ID: [id number] Report ID: [id number]
[2025-06-09 12:40] VITALS: BP 133/77; TEMP 98.8
== END 2025-06-09 14:00 | disposition home or self-care (01) | DRG 387 ==
LOC: ER 06:17 → ERHOLD 09:09 → 4TH 16:15 → OBSVTOIN 06-07 16:32
PROVIDERS: ADMIT Internal Medicine; ATTEND Internal Medicine
DX: K50.00 Crohn's disease of small intestine without complications (principal); F32.A Depression, unspecified; Z98.51 Tubal ligation status; Z98.890 Other specified postprocedural states; K52.9 Noninfective gastroenteritis and colitis, unspecified; E87.6 Hypokalemia
CPT/HCPCS: 36415; 74177; 76705; 80048; 80053; 81001; 83605; 83690; 83735; 84100; 84703; 85025; 87324; 96361; 96365; 96375; 99285; G0378; J1171; J1650; J2405; J2470; J2543; J3480; J7030; Q9967